=== PATIENT | male | born 1985 | race Caucasian/White ===

== ENCOUNTER → 2024-07-09 | Outpatient (CLI) | payer OTHER ==
[2024-07-09 15:06] VITALS: BP 159/84; PULSE 104; RESP 16; TEMP 98.3
--- NOTE | 2024-07-09 15:27 | P.SLEEP ---
History of Present Illness DATE: 07/09/2024 CONSULTATION/NEW PATIENT EVALUATION HISTORY OF PRESENT ILLNESS/SLEEP-WAKE EVALUATION: 38-year-old gentleman had been evaluated in the sleep center for possible obstructive sleep apnea hypopnea syndrome. SLEEP SCHEDULE: Usually sleep schedule from midnight until 67 AM on weekdays and until 8 AM on weekend. FALLING ASLEEP: No problems with falling asleep. DURING SLEEP: Patient snores and has episodes of stop breathing during sleep according to his . Patient wake up from sleep up to 10 times with dry mouth, gasping for air, sweating and nocturia. No history of hypnogogical hallucinations, sleep paralysis, or cataplexy. DURING THE DAY/WAKE STATE: In the morning patient wake up tired, has difficul ties to pay attention and treatability.. [place] sleepiness scale is 8. Usually patient does not take naps. PAST MEDICAL HISTORY: Mostly negative. PAST SURGICAL HISTORY: Negative. MEDICATIONS: None. SOCIAL HISTORY: Please see below. FAMILY HISTORY: Please see below. REVIEW OF SYSTEMS: Snoring, multiple awakenings from sleep. No fevers. No double vision. No recent chest pain. No shortness of breath. No abdominal pain. No bleeding episodes. No blood in urine. No seizure episodes. PHYSICAL EXAMINATION: GENERAL: A pleasant patient without any distress. VITAL SIGNS: Please see below, weight 241 pounds, BMI 34.5. HEENT: PERRLA, EOMI. Evaluation of oropharynx showed tongue protrudes midline, low position of soft palate Mallampati 34, retrognathia 2 mm. NECK: Supple. No JVD. Thyroid is not palpable. 17.5 inches in circumference. LUNGS: Clear to percussion and to auscultation. Good air exchange. No wheezing or rhonchi. HEART: S1, S2 regular. No murmurs, gallops or rubs. ABDOMEN: Soft and nontender. Bowel sounds are present. No organomegaly appreciated. EXTREMITIES: No clubbing or cyanosis. DIGITAL MEDIA COORDINATOR: Awake, alert, and oriented x3. Cranial nerves 2 to 7 intact. There is no fasciculation or atrophy noted. No focal deficits observed. ASSESSMENT: 1. Snoring, witnessed episodes of stop breathing during the sleep, extremely low position of soft palate Mallampati 34, wide neck 17.5 inches in circumference. Obstructive sleep apnea hypopnea syndrome. 2. Obesity, BMI 34.5. 3. Snoring. 4. Significant amount of movements during the sleep, rule out periodic limb movements. 5. Retrognathia 2 mm. PLAN: 1. Polysomnography for evaluation of patient's breathing during sleep. 2. Following plan after reading sleep study. 3. Preferable position during sleep on the side. 4. No driving if patient feels any sleepiness. Patient is aware of civil and criminal liability for unsafe driving. 5. Sleep hygiene with regular sleep time for at least 7.5-8 kota rs. 6. Watching and losing weight. Thank you very much for referring this patient for consultation. Sincerely, Chris Hammer MD, PhD, FAASM. Diplomat of [employer] [employer], Sleep Medicine Board by [employer] [employer] Coating Engineer of [facility] [place] cc: Ray Parr MD Past Medical History Past Medical History: Osteoarthritis (OA) Additional Past Medical History / Comment(s): arthritis ion back? History of Any Multi-Drug Resistant Organisms: None Reported Past Surgical History: No Surgical Hx Reported Past Anesthesia/Blood Transfusion Reactions: No Reported Reaction Past Psychological History: No Psychological Hx Reported Smoking Status: Current every day smoker Past Alcohol Use History: Occasional Past Drug Use History: Marijuana Physical Exam Vitals: Vital Signs Temp Pulse Resp BP Pulse Ox 07/09/24 15:05 98.3 F 104 H 16 159/84 95 Intake and Output 07/09/24 07/09/24 07/09/24 06:59 14:59 22:59 Other: Weight 109.316 kg Sleep Note - Sleep Data ESS Total: 8 - Sleep Note Sleep Note: Temperature: 98.3 F Pulse Rate: 104 Respiratory Rate: 16 Blood Pressure: 159/84 SpO2: 95 Height: 5 ft 10 in Weight: 109.316 kg BMI: Neck Circumference: 17.5
== END ==
LOC: 3 N SLEEP 14:40
PROVIDERS: ATTEND Internal Medicine
DX: G47.33 Obstructive sleep apnea (adult) (pediatric) (principal); E66.9 Obesity, unspecified; M26.19 Other specified anomalies of jaw-cranial base relationship; Z68.34 Body mass index [BMI] 34.0-34.9, adult
CPT/HCPCS: 99202

== ENCOUNTER 2024-07-23 19:52 | Outpatient (CLI) | payer OTHER ==
--- NOTE | 2024-07-24 12:29 | P.PCN ---
Description of Procedure: POLYSOMNOGRAPHY REPORT PROCEDURE(S)/DATE(S): Polysomnography 07/23/2024 CLINICAL: Patient has been seen in the sleep center for evaluation of obstructive sleep apnea-hypopnea syndrome. Please see my consultation. Sleep study has been done for evaluation of patient breathing during the sleep. PROCEDURE: The standard montage for clinical polysomnography included the electroencephalogram, the electrooculogram, the mentalis surface electromyography and Lead II cardiography. The respiratory battery consisted of measurements of nasal/buccal air flow, pressure transducer measurements from nose, thoracic and/or abdominal effort and intercostal surface electromyography. Video monitoring has been done to check for any parasomnia events. Nocturnal oxyhemoglobin saturations were obtained by finger oximetry. Step-austin titration with positive airway pressure was utilized to control the respiratory events, if necessary. RESULTS: During the diagnostic sleep study sleep efficiency was significantly decreased to 74.2%. Latency to sleep onset was borderline 25.0 min. Sleep arch itecture showed stage NI was increased to 17.0%, Delta sleep was extremely short 0.4%, REM sleep was borderline to normal 19.2%. Respiratory channel showed 2 obstructive apneas, 0 mixed apneas, 0 central apneas, 79 hypopneas with lowest oxygen level 83%. Total apnea hypopnea index was 17.8. Heart rate was in the range between 76 and 90, average 82. EMG showed 3.3 periodic limb movements per hour with 0.2 micro-arousals per hour. IMPRESSIONS: 1. Moderate obstructive sleep apnea hypopnea syndrome. 2. No significant periodic limb movements have been documented. Please see other impressions from consultation PLAN: 1. The patient will have PAP titration for correction of respiratory abnormalities during the sleep. 2. Losing weight program. 3. Sleep hygiene with regular time in bed for at least 7-1/2 hours. 4. No driving if feeling sleepiness. Thank you very much for allowing me to participate in the management of your patient. Sincerely, Chris Hammer MD, PhD, FAASM. Diplomat of [place] [employer], Sleep Medicine Board by [place] [employer] Marketing Communication Manager of [facility] [place] cc: Ray Parr MD
== END 2024-07-24 04:15 | disposition home or self-care (01) ==
LOC: 3 N SLEEP 19:52
PROVIDERS: ATTEND Internal Medicine
DX: G47.33 Obstructive sleep apnea (adult) (pediatric) (principal)
CPT/HCPCS: 95810